=== PATIENT | male | born 1995 | race African-American/Black ===

== ENCOUNTER 2016-10-28 08:47 | Emergency (ER) | payer BC, OTHER ==
--- NOTE | ~2016-10-28 | EKG ---
PATIENT: MOLLY WALTON UNIT #: [id number] Ventricular Rate: 91 BPM Atrial Rate: 91 BPM P-R Interval: 144 ms QRS Duration: 84 ms Q-T Interval: 386 ms QTC Calculation(Bezet): 474 ms P Kinsman: 70 degrees Calculated R Kinsman: 71 degrees Calculated T Kinsman: 29 degrees Diagnosis Line: Sinus rhythm with Premature supraventricular Diagnosis Line: complexes and with frequent Premature ventricular Diagnosis Line: complexes Diagnosis Line: Poor data quality Diagnosis Line: No previous ECGs available Diagnosis Line: Confirmed by FERNANDO MONTANO MD ([id number]) on Diagnosis Line: 10/28/2016 4:25:44 PM INTERPRETING MD: JUVENAL
--- NOTE | ~2016-10-28 | CR63 ---
[facility] A Service of [facility] & [facility] RADIOLOGY TEXT RESULTS PATIENT: MOLLY WALTON LOCATION: [facility] : [birth year] UNIT #: [id number] AGE: [address]: Cristiano Major DO SEX: M ORDER DR: [id number] [facility] [address] [place], [place] [address] [id number] MR#: [id number] Acc #: [id number] NAME: MOLLY WALTON : 1995 SEX: M STUDY DATE/TIME: 10/28/2016 12:16 UNIT: [facility] ROOM: STUDY DESCRIPTION: CR Chest 2 View Attending Physician: Cristiano Major D.O. Ordering Physician: Ed Doctor [id number] [facility] Primary Care Physician: Primary Care Physician No MEDICAL IMAGING REPORT This report is preliminary unless electronic signature is present EXAM Chest 2 views, 10/28/2016 12:16 hours HISTORY 21-year-old complaining of anterior chest pain and left arm pain today. History of asthma. COMPARISON None FINDINGS Upright PA and lateral views of the chest demonstrate normal cardiac, mediastinal and hilar contours. The lungs are hyperinflated with benign calcified granulomatous changes present. There is no acute pulmonary density or pleural effusion. IMPRESSION The lungs are hyperinflated with bilateral benign calcified granulomatous changes. There is no acute pulmonary density or pleural effusion. Dictated by... Mini Lomas M.D. THIS IS AN ELECTRONICALLY VERIFIED REPORT Mini Lomas M.D. at 10/29/2016 9:34 AM Arian TD: 10/28/2016 17:35 JOB #: [id number] MEDICAL IMAGING REPORT Page 1 of 1 COPY
--- NOTE | ~2016-10-28 | DS ---
Unit #: [id number] #: [id number] Patient: MOLLY WALTON [id number] [address] [place], [place] [address] [id number] MR#: [id number] NAME: MOLLY WALTON ROOM: Age: 21 Sex: M Admission Date: 10/28/2016 : 1995 Discharge Date: Attending Physician: Cristiano Major D.O. Primary Care Physician: No Primary Care Physician DISCHARGE SUMMARY SHORT STAY SUMMARY HISTORY OF PRESENT ILLNESS This is a 22-year-old male who was in his typical state of health until this morning. The patient states he was sleeping and woke up with complaints of pain in his left elbow which radiated into his wrist and his left shoulder. He states it started approximately 4 a.m. He awoke his mother and was brought to the emergency room for evaluation. The patient denies any associated chest pain, shortness of breath, palpitations, diaphoresis or syncopal episodes. Initial EKG shows normal sinus rhythm with PVCs and frequent PACs. The patient's electrolytes were all within normal limits. Potassium was 3.7, magnesium was 2.0. Cardiac enzymes have been negative times two. EKG shows no acute ischemic change. At present the patient is in the emergency room, room 10, and family is at bedside. He is in no acute distress. He denies any issues and states his arm pain is better. On telemetry sinus rhythm with occasional PVCs and frequent PACs. Urine tox screen is positive for THC. We were asked by the emergency room physician to come and evaluate the patient prior to discharge. PAST MEDICAL HISTORY Asthma. PAST SURGICAL HISTORY None reported. SOCIAL HISTORY The patient works at [employer]. He is a senior designer/art director. He denies tobacco, illicit drugs or alcohol use. However, his urine drug screen was positive for THC. FAMILY HISTORY Positive for mom with hypertension, dad unknown, but no history of sudden cardiac or syncopal episodes in any of his family members. ALLERGIES Fish per allergy testing in the past. Unknown reaction. HOME MEDICATIONS Albuterol inhaler p.r.n. REVIEW OF SYSTEMS Negative except for that stated above in the history of present illness. Unit #: [id number] #: [id number] Patient: MOLLY WALTON PHYSICAL EXAMINATION GENERAL: This is a pleasant young male in no acute distress in the emergency room, room 10. Mother, grandmother and grandfather are present at the bedside. VITALS: Temperature 98.5, respiratory rate 18, pulse 73, blood pressure 123/83. HEENT: Head is atraumatic, normocephalic. Pupils are equal and round. NECK: Trachea midline. No lymphadenopathy or thyromegaly. Normal carotid upstrokes. No jugular venous distension. LUNGS: Clear to auscultation throughout. No adventitious breath sounds. No rales, rhonchi or wheezes. HEART: S1 and S2. Occasional irregular beat. No murmur, gallop or rub. ABDOMEN: Soft, nontender and nondistended. Bowel sounds present. EXTREMITIES: Pulses are palpable. No clubbing, cyanosis or edema noted. NEUROLOGIC: He is awake, alert and oriented times three and moves all extremities equally. He follows commands with ease. DIAGNOSTIC STUDIES IMAGING: Chest x-ray shows bilateral granulomatosis changes, but no acute effusion. No acute effusion or pleural density. LABORATORY: Troponin has been negative, less than 0.05 times 2. CMP was unremarkable except for an ALT of 62. Hemoglobin 15.8, hematocrit 47.5, white blood cell count 4.8, platelets 237. Urine tox is positive for marijuana. CARDIOVASCULAR: EKG shows normal sinus rhythm, rate of 91 beats per minute, frequent PACs, occasional PVCs, QTC interval 474 msec, no acute ischemic changes noted. ASSESSMENT 1. Left arm, wrist, and elbow pain. The patient reports this has resolved. 2. Frequent PACs. Occasional PACs. 3. History of asthma. 4. Positive urine drug tox for marijuana. HOSPITAL COURSE/PLAN I have seen and evaluated the patient and discussed the case with Dr. Bui. There is no additional cardiac workup needed at this time. His EKG shows no ischemic change. His initial cardiac enzymes have been negative. His chest x-ray shows no acute process. The patient's electrolytes have all been reviewed. They were all within normal limits. The patient's blood pressure is stable. He does have frequent PACs and occasional PVCs. Will add and check a TSH to the blood that is currently in the lab. Will also start the patient on beta hodan 25 mg p.o. daily. The patient was advised on possible side effects and when to call the office. From our standpoint it is okay to discharge him home today. He is advised to follow up with his primary care physician in one week and he was also advised to follow up with Dr. Bui in one to two weeks sat the [facility] office, where the patient prefers to go. This has all been discussed with both the patient and his family and they are agreeable. The patient was also advised to return to the emergency room if further symptoms occur. Dictated by... Shoshana Chavez A.P.R.N. Unit #: [id number] #: [id number] Patient: MOLLY WALTON LMW/gz TD: 10/28/2016 14:13 JOB #: [id number] DISCHARGE SUMMARY Page 1 of 1 X Shoshana Chavez APRN X DISCHARGE SUMMARY
[2016-10-28 09:53] LABS: POC - CKMB <1.0 ng/mL (0.0-7.9); POC - TROPONIN <0.05 ng/mL (<=0.05)
[2016-10-28 09:54] LABS: BASOPHIL% 0.8 % (0-2.5); DIFF IND NO; EOSINOPHIL# 0.2 X10e3 (0-0.7); EOSINOPHIL% 3.9 % (0.0-7.0); HEMATOCRIT 47.5 % (38.0-50.0); HEMOGLOBIN 15.8 gm/dL (13.0-16.0); LYMPHOCYTE# 1.8 X10e3 (1.0-3.5); MEAN CORPUSCULAR HEMOGLOBIN 27.7 PG (28-34); MEAN CORPUSCULAR HGB CONC 33.3 g/dL (30-36); MEAN PLATELET VOLUME 8.4 FL (6.5-11.5); MONOCYTE# 0.4 X10e3 (0-1.0); MONOCYTE% 8.6 % (3.0-12.0); NEUTROPHIL# 2.3 X10e3 (1.5-7.1); NEUTROPHIL% 48.7 % (40-75); PLATELET COUNT 237 X10e3 (140-420); RED BLOOD COUNT 5.72 X10e (3.90-5.60); RED CELL DISTRIBUTION WIDTH 13.7 % (11.0-15.5); WHITE BLOOD COUNT 4.8 X10e3 (4.0-10.5)
[2016-10-28 10:37] LABS: ALBUMIN SERUM 4.4 g/dL (3.5-5.0); BILIRUBIN, DIRECT 0.1 mg/dL (0.0-0.2); BILIRUBIN,INDIRECT 0.6 mg/dL (0.0-0.9); BILIRUBIN,TOTAL 0.7 mg/dL (0.2-2.0); CALCIUM SERUM 9.2 mg/dL (8.4-10.2); POTASSIUM 3.7 mmol/L (3.5-5.1); PROTEIN TOTAL SERUM 7.4 g/dL (6.0-8.3)
[2016-10-28 10:41] LABS: AMPHETAMINE NEG (NEG); BARBITURATES NEG (NEG); BENZODIAZEPINES NEG (NEG); COCAINE NEG (NEG); MARIJUANA POS (NEG); OPIATES NEG (NEG); TRICYCLIC ANTIDEPRESSANTS NEG (NEG); U METHADONE NEG (NEG)
[2016-10-28 11:39] LABS: POC - CKMB <1.0 ng/mL (0.0-7.9); POC - TROPONIN <0.05 ng/mL (<=0.05)
== END 2016-10-28 14:59 | disposition home or self-care (01) ==
LOC: CED 08:47 → CFTX 08:47 → CED 09:57
PROVIDERS: Emergency Medicine; Nurse Practitioner
DX: R07.9 Chest pain, unspecified (principal); M79.632 Pain in left forearm; M25.512 Pain in left shoulder; F12.90 Cannabis use, unspecified, uncomplicated; J45.909 Unspecified asthma, uncomplicated
CPT/HCPCS: 36415; 71020; 80048; 80076; 80307; 82553; 83735; 84443; 84484; 85025; 85379; 93005; 99284